=== PATIENT | male | born 1995 ===

== ENCOUNTER 2023-07-13 04:16 | Inpatient (IN) | payer OTHER, SELFPAY ==
[~2023-07-13] VITALS: Ht 190.5 cm; Wt 112.5 kg
[2023-07-13] VITALS (11 sets, daily range): BP systolic 91–125; BP diastolic 50–73; TEMP 98.3–101; O2SAT 97–100
[2023-07-13] MEDS ORDERED: LORazepam 2 MG/ML 1ML VIAL IV STA ×2 (04:20→05:00)
[2023-07-13] MEDS ORDERED: NS 1,000 ML IV ONE ×2 (04:20→08:05)
[2023-07-13 04:41] LABS: BASO # 0.1 10^3/uL (0.0-0.2); EOS # 0.1 10^3/uL (0.0-0.5); EOS % 1.5 % (0.0-3.0); HEMATOCRIT 43.8 % (42.0-52.0); HEMOGLOBIN 15.2 g/dl (13.5-17.5); LYMPH # 2.4 10^3/uL (1.5-5.0); LYMPH % 33.1 % (24.0-44.0); MEAN CORPUSCULAR HEMOGLOBIN 29.7 pg (27.0-33.0); MEAN CORPUSCULAR HGB CONC 34.7 g/dl (32.0-36.5); MEAN CORPUSCULAR VOLUME 85.5 fl (80.0-96.0); MONO # 0.9 10^3/uL (0.0-0.8); MONO % 11.9 % (2.0-8.0); NEUTROPHILS # 3.7 10^3/uL (1.5-8.5); NEUTROPHILS % 51.5 % (36.0-66.0); PLATELET COUNT, AUTOMATED 399 10^3/uL (150-450); RED BLOOD COUNT 5.12 10^6/uL (4.30-6.10); WHITE BLOOD COUNT 7.1 10^3/uL (4.0-10.0)
[2023-07-13 05:13] LABS: ALBUMIN 4.2 G/DL (3.2-5.2); ALKALINE PHOSPHATASE 78 U/L (46-116); ALT/SGPT 32 U/L (7.0-40); AST/SGOT 20 U/L (<34); BILIRUBIN,DIRECT 0.2 MG/DL (<0.4); BILIRUBIN,TOTAL 0.4 MG/DL (0.3-1.2); BLOOD UREA NITROGEN 12 MG/DL (9-23); CALCIUM LEVEL 8.6 MG/DL (8.5-10.1); CARBON DIOXIDE LEVEL 21 MMOL/L (20-31); CHLORIDE LEVEL 108 MMOL/L (98-107); CREATININE FOR GFR 1.03 MG/DL (0.70-1.30); GLOMERULAR FILTRATION RATE > 60.0 (>60); GLUCOSE, FASTING 115 MG/DL (60-100); POTASSIUM SERUM 3.8 MMOL/L (3.5-5.1); SALICYLATE LEVEL < 3.0 MG/DL (<30); SODIUM LEVEL 143 MMOL/L (136-145); TOTAL PROTEIN 7.2 G/DL (5.7-8.2)
[2023-07-13 05:14] LABS: RSV AMPLIFICATION NEGATIVE (NEGATIVE)
[2023-07-13 05:15] LABS: THYROID STIMULATING HORMONE 0.866 uIU/ML (0.55-4.78)
[2023-07-13 05:26] LABS: CPK CREATINE PHOSPHOKINASE 245 U/L (46-171)
[2023-07-13 05:42] LABS: ETHYL ALCOHOL (ETHANOL) 0.311 % (0.000-0.010)
[2023-07-13] MEDS ORDERED: ONDANSETRON 4MG 2ML VIAL IV ONE (05:50)
[2023-07-13] MEDS ORDERED: ROCURONIUM BROMIDE 50MG/5ML VIAL IV ONE (06:20)
[2023-07-13] MEDS ORDERED: ETOMIDATE INJ 20MG/10ML VIAL IV ONE (06:20)
[2023-07-13] MEDS: propofoL 1,000 MG in IV 1 EA IV SCH ×4 (06:46→10:00)
[2023-07-13 07:06] LABS: ABG BASE EXCESS -2.2 (-2.0-2.0); ABG HCO3 24.7 MMOL/L (22.0-26.0); ABG O2 SATURATION 99.5 % (95.0-99.0); ABG PARTIAL PRESSURE CO2 50.5 mmHg (35.0-45.0); ABG PARTIAL PRESSURE O2 244.2 mmHg (75.0-100.0); ABG STANDARD HCO3 22.7 MMOL/L. (22.0-26.0); ABG TOTAL CO2 26.3 MMOL/L (22.0-29.0); ABG pH (ARTERIAL) 7.308 UNITS (7.350-7.450)
[2023-07-13] MEDS ORDERED: propofoL 200 MG/20 ML VIAL IV ONE ×3 (08:05→08:55)
[2023-07-13] MEDS ORDERED: fentaNYL 100 MCG/2 ML INJECTION IV ONE ×2 (08:05→08:55)
[2023-07-13] MEDS ORDERED: fentaNYL CITRATE/NaCl 1,000 MCG in IV 1 EA IV SCH (08:10)
[2023-07-13] MEDS ORDERED: FENTANYL DRIP LOCK BOX KEY 1 EACH XX PRN (08:10)
[2023-07-13] MEDS ORDERED: MED REC CURRENTLY UNOBTAINABLE XX SCH (08:25)
[2023-07-13] MEDS ORDERED: MED REC IN PROGRESS XX SCH (08:25)
[2023-07-13] MEDS ORDERED: NOREPINEPHRINE 4MG IN D5 250ML 4 MG in IV 1 EA IV SCH ×2 (08:30)
[2023-07-13] MEDS ORDERED: LR 1,000 ML IV SCH (08:35)
[2023-07-13 08:36] LABS: AMPHETAMINES LEVEL URINE NEGATIVE (NEGATIVE); BARBITURATES URINE NEGATIVE (NEGATIVE); BENZODIAZEPINES URINE NEGATIVE (NEGATIVE); CANNABINOIDS URINE NEGATIVE (NEGATIVE); COCAINE METABOLITE URINE NEGATIVE (NEGATIVE); METHADONE URINE NEGATIVE (NEGATIVE); OPIATES URINE NEGATIVE (NEGATIVE); PHENCYCLIDINE URINE NEGATIVE (NEGATIVE)
[2023-07-13] MEDS ORDERED: MIDAZOLAM INJ 2MG/2ML VIAL IV STA (09:33)
[2023-07-13] MEDS ORDERED: MIDAZOLAM INJ 2MG/2ML VIAL As Ordered ONE (09:34)
[2023-07-13] MEDS ORDERED: MIDAZOLAM INJ 2MG/2ML VIAL IV PRN (09:35)
[2023-07-13] MEDS ORDERED: PROPOFOL 1,000 MG/100 ML VIAL As Ordered ONE (10:59)
[2023-07-13] MEDS: PANTOPRAZOLE 40MG VIAL IV SCH (11:18)
[2023-07-13] MEDS: ENOXAPARIN 40MG/0.4ML SYRINGE (J1650 PER 10MG) SC SCH (11:19)
[2023-07-13 12:46] LABS: VENOUS BASE EXCESS -5.2 (-2.0-2.0); VENOUS HCO3 20.4 MMOL/L (23.0-27.0); VENOUS O2 SATURATION 99.5 % (60.0-80.0); VENOUS PARTIAL PRESSURE O2 233.3 mmHg (30.0-50.0); VENOUS PH 7.325 UNITS (7.330-7.430); VENOUS STANDARD HCO3 20.3 MMOL/L; VENOUS TOTAL CO2 21.6 MMOL/L (24.0-28.0)
[2023-07-14] VITALS: BP 119/51; TEMP 99.8; O2SAT 98
[2023-07-14 04:00] VITALS: BP 115/58; TEMP 99.6; O2SAT 96
[2023-07-14 06:30] LABS: BLOOD UREA NITROGEN 12 MG/DL (9-23); CALCIUM LEVEL 8.8 MG/DL (8.5-10.1); CARBON DIOXIDE LEVEL 28 MMOL/L (20-31); CHLORIDE LEVEL 106 MMOL/L (98-107); CPK CREATINE PHOSPHOKINASE 448 U/L (46-171); GLOMERULAR FILTRATION RATE > 60.0 (>60); GLUCOSE, FASTING 87 MG/DL (60-100); PHOSPHORUS LEVEL 3.8 MG/DL (2.5-4.9); SODIUM LEVEL 140 MMOL/L (136-145)
[2023-07-14 08:00] VITALS: BP 120/58; TEMP 99.3; O2SAT 96
[2023-07-14] MEDS: PANTOPRAZOLE 40MG VIAL IV SCH (08:36)
[2023-07-14] MEDS: ENOXAPARIN 40MG/0.4ML SYRINGE (J1650 PER 10MG) SC SCH (08:36)
[2023-07-14 12:00] VITALS: BP 122/61; TEMP 99; O2SAT 97
== END 2023-07-14 16:03 | disposition home or self-care (01) | DRG 208 ==
LOC: M ED 04:16 → M ED INP 08:29 → ENRESERV 08:37 → M ICU 09:25
PROVIDERS: ADMIT Internal Medicine Pulmonary Disease; ATTEND Internal Medicine Pulmonary Disease
PROC: 0BH17EZ Insertion of Endotracheal Airway into Trachea, Via Natural or Artificial Opening (ICD-10-PCS; principal; 2023-07-13)
PROC: 5A1935Z Respiratory Ventilation, Less than 24 Consecutive Hours (ICD-10-PCS; 2023-07-13)
DX: J96.01 Acute respiratory failure with hypoxia (principal); M62.82 Rhabdomyolysis; F10.129 Alcohol abuse with intoxication, unspecified